=== PATIENT | female | born 1935 | race Caucasian/White ===

== ENCOUNTER → 2016-12-12 | Outpatient (CLI) | payer OTHER, MEDICARE ==
[~2016-12-12] MED LIST: APAP500; CARBIDOPA-LEVO1 EAC9 PO; COLACE100 MG PO; COUMADIN 2.5MG2.5 M1 PO; COUMADIN 4 MG TA4 M1; COUMADIN 5 MG TA5 M1 PO; DILTIAZEM 24HR120 M2 PO; DILTIAZEM HCL30 MG PO; FISH OIL 1,2001 EAC4 PO; IRON325 PO; KEFLEX500 M1 PO; LOPRESSOR50 PO; RED YEAST RICE600 M1 PO; SUPER B-50 COM1 EACH PO; TRAMADOL 50 MG50 MG PO; TRIAMTERENE-HC1 EAC1 PO; TYLENOL325 MG PO
== END ==
LOC: RAD 08:29 → BC 10:35 → RAD 15:25
DX: R92.2 Inconclusive mammogram (principal)

== ENCOUNTER 2017-02-25 04:15 | Emergency (ER) | payer OTHER, MEDICARE ==
[~2017-02-25] VITALS: Ht 154.9 cm; Wt 108.9 kg
--- NOTE | ~2017-02-25 | EKG ---
[place] [address] [facility] [place] [address] ELECTROCARDIOGRAM REPORT Name: CHELOOLIVIERSYAngel RUSHINGE Room #: DEP [facility]#: [id number] Admission: 02/25/17 Attend Phys: Discharge: 02/25/17 Date of : 39 Report #: [id number] THIS REPORT FOR: //name// [facility] ED Test Date: 2017-02-25 Test Time: 05:07:57 Pat Name: SY IRIZARRY Department: Room: Gender: F Orthopedic Cast Specialist: UBALDO : 1935 Requested By: Kenny Ocampo Order Number: [id number] MD: Luiz Rosales Measurements Intervals [place] Rate: 67 P: 35 AL: 153 QRS: -5 QRSD: 82 T: 19 QT: 435 QTc: 460 Interpretive Statements Sinus arrhythmia Baseline wander in lead(s) V3 Compared to ECG 12/11/2013 05:20:06 No significant change was found Electronically Signed On 02-27-2017 13:30:49 CDT by Luiz Roslaes [email or web address] <ELECTRONICALLY SIGNED> By: Luiz Rosales MD, [facility] 02/27/17 [id number] Luiz Rosales MD, [facility] /EPI
[2017-02-25] MEDS ORDERED: ASPIRIN EC81 M1 PO (05:05)
[2017-02-25] MEDS ORDERED: VITAMIN D3400 UNIT PO (05:11)
[2017-02-25 05:14] LABS: ABSOLUTE NEUTROPHILS 6.1 thou/uL (1.4-8.2); EOSINOPHILS 2.6 % (0.0-3.0); HEMATOCRIT 41.4 % (37.0-47.0); HEMOGLOBIN 13.8 gm/dL (12.0-15.0); LYMPHOCYTES 25.5 % (24.0-44.0); MCH 32.8 pg (26.0-34.0); MCHC 33.4 g/dL (28.0-37.0); MCV 98.1 fL (80.0-100.0); MONOCYTES 9.4 % (1.0-8.0); PLATELET COUNT 196 thou/uL (150-400); POLYS 61.5 % (36.0-66.0); RBC 4.22 mil/uL (4.20-5.00); RDW 13.5 % (10.5-14.5); WBC 9.9 thou/uL (4.0-11.0)
[2017-02-25 05:18] LABS: MANUAL DIFF NO
[2017-02-25 05:27] LABS: CALCIUM 9.4 mg/dL (8.5-10.1); CREATININE 0.7 mg/dL (0.6-1.0); POTASSIUM 3.9 mmol/L (3.5-5.1)
[2017-02-25 05:33] LABS: ALBUMIN 3.5 g/dL (3.4-5.0); TOTAL BILIRUBIN 0.3 mg/dL (<0.1-1.0); TOTAL PROTEIN 7.2 g/dL (6.4-8.2)
[2017-02-25] MEDS ORDERED: PEPCID20 MG PO (05:49)
[2017-02-25] MEDS ORDERED: TRAMADOL 50 MG50 MG PO (05:49)
[2017-02-25 05:53] LABS: URINE BILIRUBIN NEGATIVE (Negative); URINE BLOOD NEGATIVE (Negative); URINE COLOR YELLOW; URINE GLUCOSE-RANDOM* NEGATIVE (Negative); URINE KETONES TRACE (Negative); URINE LEUKOCYTES-REFLEX NEGATIVE (Negative); URINE PROTEIN (DIPSTICK) NEGATIVE (Negative); URINE SPECIFIC GRAVITY >= 1.030 (1.003-1.035); URINE UROBILINOGEN 0.2 E.U./dl (0.2-1.0)
== END 2017-02-25 07:32 | disposition home or self-care (01) ==
LOC: ER 04:15
PROVIDERS: Emergency Medicine
DX: R10.9 Unspecified abdominal pain (principal); I10 Essential (primary) hypertension; I48.91 Unspecified atrial fibrillation; Z90.710 Acquired absence of both cervix and uterus; Z88.2 Allergy status to sulfonamides

== ENCOUNTER 2017-10-15 18:58 | Emergency (ER) | payer OTHER, MEDICARE ==
[~2017-10-15] VITALS: Ht 154.9 cm; Wt 113.4 kg
--- NOTE | ~2017-10-15 | EKG ---
[place] [address] [facility] [employer] [place] [address] ELECTROCARDIOGRAM REPORT Name: CHELOKRISTEN AGUAYOAngel RUSHINGE Room #: DEP [facility]#: [id number] Admission: 10/15/17 Attend Phys: Discharge: 10/15/17 Date of : 39 Report #: [id number] THIS REPORT FOR: //name// [facility] ED Test Date: 2017-10-15 Test Time: 19:41:32 Pat Name: SY IRIZARRY Department: Room: Gender: F Product/Industry Consultant: Vishnu SALTER : 1935 Requested By: Srinivasa Mercedes Order Number: [id number] MD: Luiz Rosales Measurements Intervals [place] Rate: 64 P: [place]: QRS: 8 QRSD: 100 T: 28 QT: 476 QTc: 491 Interpretive Statements Sinus rhythm with atrial premature complexes Borderline prolonged QT interval Compared to ECG 02/25/2017 05:07:57 Atrial premature complexes are present Electronically Signed On 10-16-2017 8:44:30 CDT by Luiz Rosales [email or web address] <ELECTRONICALLY SIGNED> By: Luiz Rosales MD, [facility] 10/16/17 0844 40 40 Luiz Rosales MD, [facility] /EPI
[~2017-10-15 18:58] MED LIST changes: +ASPIRIN EC81 M1 PO; +PEPCID20 MG PO; +VITAMIN D3400 UNIT PO
[2017-10-15 19:41] LABS: ABSOLUTE NEUTROPHILS 5.1 thou/uL (1.4-8.2); BASOPHILS 0.6 % (0.0-2.0); EOSINOPHILS 3.5 % (0.0-3.0); HEMATOCRIT 41.8 % (37.0-47.0); HEMOGLOBIN 14.1 gm/dL (12.0-15.0); LYMPHOCYTES 30.7 % (24.0-44.0); MCH 33.2 pg (26.0-34.0); MCHC 33.8 g/dL (28.0-37.0); MCV 98.1 fL (80.0-100.0); MONOCYTES 7.5 % (1.0-8.0); PLATELET COUNT 204 thou/uL (150-400); POLYS 57.7 % (36.0-66.0); RBC 4.26 mil/uL (4.20-5.00); RDW 13.6 % (10.5-14.5); WBC 8.9 thou/uL (4.0-11.0)
[2017-10-15 19:50] LABS: ANION GAP 8 mmol/L (7-16); BUN 21 mg/dL (7-18); CALCIUM 9.5 mg/dL (8.5-10.1); CHLORIDE 104 mmol/L (98-107); CO2 29 mmol/L (21-32); CREATININE 1.1 mg/dL (0.6-1.0); GLUCOSE 146 mg/dL (74-106); POTASSIUM 3.8 mmol/L (3.5-5.1); SODIUM 141 mmol/L (136-145)
[2017-10-15 19:58] LABS: ALBUMIN 3.5 g/dL (3.4-5.0); LIPASE 189 U/L (73-393); SGOT 29 U/L (15-37); SGPT 12 U/L (30-65); TOTAL BILIRUBIN 0.4 mg/dL (<0.1-1.0); TOTAL PROTEIN 7.4 g/dL (6.4-8.2); TROPONIN-I < 0.04 ng/mL (<0.06)
[2017-10-15 20:32] LABS: URINE BILIRUBIN NEGATIVE (Negative); URINE BLOOD NEGATIVE (Negative); URINE CLARITY SL CLOUDY; URINE COLOR YELLOW; URINE GLUCOSE-RANDOM* NEGATIVE (Negative); URINE KETONES TRACE (Negative); URINE LEUKOCYTES-REFLEX NEGATIVE (Negative); URINE NITRITE-REFLEX NEGATIVE (Negative); URINE PROTEIN (DIPSTICK) NEGATIVE (Negative); URINE SPECIFIC GRAVITY >= 1.030 (1.005-1.035); URINE UROBILINOGEN 0.2 E.U./dl (0.2-1.0)
[2017-10-15] MEDS ORDERED: ZOFRAN ODT4 MG PO (20:41)
== END 2017-10-15 20:56 | disposition home or self-care (01) ==
LOC: ER 18:58
PROVIDERS: Physician Assistant
DX: R10.9 Unspecified abdominal pain (principal); R11.2 Nausea with vomiting, unspecified; I48.91 Unspecified atrial fibrillation; I10 Essential (primary) hypertension; G47.33 Obstructive sleep apnea (adult) (pediatric); Z90.49 Acquired absence of other specified parts of digestive tract; Z90.89 Acquired absence of other organs; Z90.710 Acquired absence of both cervix and uterus; Z88.2 Allergy status to sulfonamides